=== PATIENT | female | born 1955 | race Two or more races ===

== ENCOUNTER 2018-07-04 16:28 | Emergency (ER) | payer MEDICARE, MEDICAID, OTHER | END 2018-07-04 21:37 | disposition home or self-care (01) | LOC: FTE 21:37 | DX: S80.211A Abrasion, right knee, initial encounter (principal); I10 Essential (primary) hypertension; E11.9 Type 2 diabetes mellitus without complications; W18.30XA Fall on same level, unspecified, initial encounter; Y92.9 Unspecified place or not applicable; Z79.84 Long term (current) use of oral hypoglycemic drugs; Z21 Asymptomatic human immunodeficiency virus [HIV] infection status | CPT/HCPCS: 99283 ==